=== PATIENT | female | born 1970 | race Caucasian/White ===

== ENCOUNTER → 2017-12-14 11:58 | Outpatient (CLI) | payer SELFPAY ==
[2017-12-20 11:54] LABS: HPV Reflexed? NOT INDICATED
== END ==
PROVIDERS: Visit Provider Obstetrics & Gynecology
DX: Z12.4 Encounter for screening for malignant neoplasm of cervix (principal)
CPT/HCPCS: 88175; G0145

== ENCOUNTER 2018-09-11 09:31 | Day surgery (SDC) | payer BC, SELFPAY ==
[2018-09-04 08:53] VITALS: BMI 42.3
[2018-09-11 09:51] VITALS: BP 150/94; PULSE 88; RESP 16; TEMP 36.3; O2SAT 95; BMI 42.3
[2018-09-11 11:35] VITALS: BP 150/94; BP 155/91; PULSE 85; RESP 16; TEMP 36; O2SAT 100
[2018-09-11 11:40] VITALS: BP 125/102; BP 150/94; PULSE 73; RESP 16; O2SAT 100
--- NOTE | 2018-09-11 11:40 | OP.ENDO_ITS ---
Patient Name: Macy Pino Procedure Date: 09/11/2018 11:10 AM Date of : 1970 Age: 48 Procedure: Colonoscopy Indications: Rectal bleeding, Rectal pain Providers: Talha Merritt MD Referring MD: Talha Merritt MD Medicines: See the Anesthesia note for documentation of the administered medications Patient Profile: This is a 48 year old female. Refer to note in patient chart for documentation of history and physical. Last Colonoscopy: none. The patient's first colonoscopy is today. Complications: No immediate complications. Procedure: Pre-Anesthesia Assessment: - Prior to the procedure, a History and Physical was performed, and patient medications and allergies were reviewed. The patient's tolerance of previous anesthesia was also reviewed. The risks and benefits of the procedure and the sedation options and risks were discussed with the patient. All questions were answered, and informed consent was obtained. Prior Anticoagulants: The patient has taken no previous anticoagulant or antiplatelet agents. ASA Grade Assessment: III - A patient with severe systemic disease. After reviewing the risks and benefits, the patient was deemed in satisfactory condition to undergo the procedure. After I obtained informed consent, the scope was passed under direct vision. Throughout the procedure, the patient's blood pressure, pulse, and oxygen saturations were monitored continuously. The adult colonoscope was introduced through the anus and advanced to the cecum, identified by appendiceal orifice and ileocecal valve. The colonoscopy was performed without difficulty. The patient tolerated the procedure well. The quality of the bowel preparation was good. Scope In: 11:19:29 AM Scope Withdrawal Time 0 hours 6 minutes 33 seconds Scope Out: 11:30:03 AM Total Procedure Duration Time 0 hours 10 minutes 34 seconds Findings: An anal fissure was found on perianal exam. Hemorrhoids were found on perianal exam. Non-bleeding non-thrombosed non-prolapsed external and internal hemorrhoids were found during retroflexion. The hemorrhoids were mild and small. The exam was otherwise without abnormality. Impression: - Anal fissure found on perianal exam. - Hemorrhoids found on perianal exam. - Non-bleeding non-thrombosed non-prolapsed external and internal hemorrhoids. - The examination was otherwise normal. - No specimens collected. Recommendation: - Discharge patient to home. - Resume previous diet. - Continue present medications. - Return to my office in 1 week. - Repeat colonoscopy in 10 years for surveillance. Procedure Code(s): --- Professional --- 08576, Colonoscopy, flexible; diagnostic, including collection of specimen(s) by brushing or washing, when performed (separate procedure) Diagnosis Code(s): --- Professional --- K60.2, Anal fissure, unspecified K64.8, Other hemorrhoids K62.5, Hemorrhage of anus and rectum K62.89, Other specified diseases of anus and rectum CPT copyright 2017 [employer]. All rights reserved. The codes documented in this report are preliminary and upon medical record coder review may be revised to meet current compliance requirements. MD Talha Wilkinson MD 09/11/2018 11:40:26 AM This report has been signed electronically. Number of Addenda: 0 Note Initiated On: 09/11/2018 11:10 AM
[2018-09-11 11:45] VITALS: BP 147/90; BP 150/94; PULSE 72; RESP 16; O2SAT 100
[2018-09-11 11:50] VITALS: BP 134/88; BP 150/94; PULSE 75; RESP 16; TEMP 36; O2SAT 100
--- OUTSIDE RECORDS SUMMARY | 2018-12-13 16:17 | XMS RPT_ITS ---
:1970 Author Organization [facility] Care Team Providers Name Role Phone Antony Angelo Admitting Unavailable NewwanglAntony Attending Unavailable Eron Cowart Primary Care Unavailable NewbillAntony Admitting Unavailable NewbilAntony greenfield Attending Unavailable Eron Cowart Primary Care Unavailable NewbillAntony Admitting Unavailable NewbillAntony Attending Unavailable Bethanie, Kamaljit A Primary Care Unavailable NewbillAntony Admitting Unavailable NewbillAntony Attending Unavailable Bethanie, Kamaljit A Primary Care Unavailable Talha Merritt Attending Unavailable Bethanie, Kamaljit Referring Unavailable Talha Merritt Attending Unavailable Lety Ortiz Attending Unavailable Talha Merritt Attending Unavailable Talha Merritt Referring Unavailable Bethanie, Kamaljit Primary Care Unavailable PROBLEMS PROBLEMS DATE TYPE CONDITION / CODE ATTENDING STATUS SOURCE 10/08/2018 Unknown K62.5 - [place], Talha Active [facility] Hemorrhage of [facility] anus and rectum / Hospital K62.5(ICD-10) Repository 10/08/2018 Unknown K60.2 - Anal Talha Merritt Active [facility] fissure, Community unspecified / Hospital K60.2(ICD-10) Repository 10/08/2018 Unknown K64.8 - Other Talha Merritt Active [facility] hemorrhoids / Community K64.8(ICD-10) Hospital Repository 10/08/2018 Unknown K62.89 - Other Talha Merritt Active [facility] specified Community diseases of anus Hospital and rectum / Repository K62.89(ICD-10) 12/14/2017 Unknown Z12.4 - Encounter Lety Ortiz for screening for [facility] neoplasm of Repository cervix / Z12.4(ICD-10) PROCEDURES PROCEDURES No Procedure Records FoundRESULTS RESULTS OPERATIVE REPORT - Observed: 09/11/2018 Status: F Source: [facility] ENDOSCOPY 11:40 AM [facility] REPOSITORY [facility] Medical Records Department [address] [place] [address] Operative Report - Endoscopy MR#: [id number] Acct: [id number] Name: FLORESITA PINO Rep #: [id number] : 1970 48 From: Talha Merritt MD PCP: Kamaljit Kovacs DO Status: [facility] Patient Name: Floresita Pino Procedure Date: 09/11/2018 11:10 AM Date of : 1970 Age: 48 Procedure: Colonoscopy Indications: Rectal bleeding, Rectal pain Providers: Talha Merritt MD Referring MD: Talha Merritt MD Medicines: See the Anesthesia note for documentation of the administered medications Patient Profile: This is a 48 year old female. Refer to note in patient chart for documentation of history and physical. Last Colonoscopy: none. The patient's first colonoscopy is today. Complications: No immediate complications. Procedure: Pre-Anesthesia Assessment: - Prior to the procedure, a History and Physical was performed, and patient medications and allergies were reviewed. The patient's tolerance of previous anesthesia was also reviewed. The risks and benefits of the procedure and the sedation options and risks were discussed with the patient. All questions were answered, and informed consent was obtained. Prior Anticoagulants: The patient has taken no previous anticoagulant or antiplatelet agents. ASA Grade Assessment: III - A patient with severe systemic disease. After reviewing the risks and benefits, the patient was deemed in satisfactory condition to undergo the procedure. After I obtained informed consent, the scope was passed under direct vision. Throughout the procedure, the patient's blood pressure, pulse, and oxygen saturations were monitored continuously. The adult colonoscope was introduced through the anus and advanced to the cecum, identified by appendiceal orifice and ileocecal valve. The colonoscopy was performed without difficulty. The patient tolerated the procedure well. The quality of the bowel preparation was good. Scope In: 11:19:29 AM Scope Withdrawal Time 0 hours 6 minutes 33 seconds Scope Out: 11:30:03 AM Total Procedure Duration Time 0 hours 10 minutes 34 seconds Findings: An anal fissure was found on perianal exam. Hemorrhoids were found on perianal exam. Non-bleeding non-thrombosed non-prolapsed external and internal hemorrhoids were found during retroflexion. The hemorrhoids were mild and small. The exam was otherwise without abnormality. Impression: - Anal fissure found on perianal exam. - Hemorrhoids found on perianal exam. - Non-bleeding non-thrombosed non-prolapsed external and internal hemorrhoids. - The examination was otherwise normal. - No specimens collected. Recommendation: - Discharge patient to home. - Resume previous diet. - Continue present medications. - Return to my office in 1 week. - Repeat colonoscopy in 10 years for surveillance. Procedure Code(s): --- Professional --- 02268, Colonoscopy, flexible; diagnostic, including collection of specimen(s) by brushing or washing, when performed (separate procedure) Diagnosis Code(s): --- Professional --- K60.2, Anal fissure, unspecified K64.8, Other hemorrhoids K62.5, Hemorrhage of anus and rectum K62.89, Other specified diseases of anus and rectum CPT copyright 2017 [employer]. All rights reserved. The codes documented in this report are preliminary and upon acidizer helper review may be revised to meet current compliance requirements. MD Talha Wilkinson MD 09/11/2018 11:40:26 AM This report has been signed electronically. Number of Addenda: 0 Note Initiated On: 09/11/2018 11:10 AM 12/18/18 1140 Date Talha Merritt MD Cosigner Signature: Date (if indicated) CC: Talha Merritt MD; Kamaljit Kovacs DO Date Dictated: 09/11/18 1110 Date Transcribed: Gas Distribution And Emergency Clerk: RICKY Signed SURGERY VISIT REPORT Observed: 09/05/2018 Status: F Source: [facility] 7:54 AM [facility] [address] [place] [address] [address] [place] [address] OFFICE VISIT Date of Service: 09/04/18 MR#: [id number] Acct: [id number] Name: FLORESITA PINO Rep #: [id number] : 1970 Provider: Talha Merritt MD Age/Sex: 48/F Location: [facility] Status: Signed Intake Vital Signs09/04/18 Height 5 ft 7 in 09/04/18 Weight: 270 lb 10 oz 09/04/18 Body Mass Index (BMI) 42.3 09/04/18 Blood Pressure 130/72 H H Intake Visit Reasons: Hemorrhoids Chief Complaint: hemorrhoid Laboratory Scientist Required: No Is patient in pain?: Yes Pain scale (1-10): 4 Allergies No Known Allergies Allergy (Verified 09/04/18 08:55) Medications Multivitamin [Daily Multiple Vitamin] 1 ea PO DAILY 10/29/15 [History Confirmed 09/04/18] ascorbate calcium-bioflavonoid 1,000 mg-200 mg tablet tab PO tab 09/04/18 [History Confirmed 09/04/18] hydrocortisone 2.5 % topical cream with perineal applicator 1 applic RC BID #30 g 09/04/18 [Rx Confirmed 09/04/18] Is last menstrual period known: No Post menopausal: Yes Patient : No PFSH Medical History Hemorrhoids (Acute) History of hysterectomy (Acute) Surgical History History of arthroscopy of both knees (Acute) History of bilateral knee replacement (Acute) History of cholecystectomy (Acute) Status post wrist surgery (Acute) Family History Mother Diabetes Hypertension Cancer renal Father Heart disease Social History Smoking Status: Former smoker HPI HPI HPI: FLORESITA PINO, is a 48 F who presents to the office today for evaluation of rectal bleeding. Patient has had for about 1 year constant itching burning anal pain she is been noticing off and on rectal bleeding. She has been using odwy-ssa-hsrgkiy remedies for hemorrhoidal disease but this is not been helping her anal pain. She has never had an endoscopy. ROS General General: No weight change, appetite, fatigue, colon cancer, breast cancer or weakness Endo Endocrine: No thyroid disease, diabetes mellitus, thyroid cancer, Hair loss, heat intolerance or cold intolerance Cardio Cardiovascular: No murmur, pacemaker, heart disease, atrial fibrillation, high blood pressure, heart attack, heart stent, palpitations, shortness of breat with exertion or chest pain Resp Respiratory: No shortness of breath, No sleep apnea, No cough, No COPD, No asthma, No emphysema, No wheezing Gastro Gastrointestinal: No abdominal pain, No nausea or vomiting, No diarrhea, No constipation, No blood in stool, No acid reflux, Yes hemorrhoids, No ulcers, Yes gallbladder problem, No black,tarry stools Dameon Hematologic: No blood thinners, No blood disorders, No bleeding, No anemia, No blood clots Neuro Neurologic: No weakness Exam Const General: well developed, no acute distress, well hydrated Orientation: oriented to person, oriented to place, oriented to time [facility] Head: normocephalic, atraumatic Ears: external ears normal Mouth: moist mucous membranes Eyes Sclera: sclerae normal Pupils: normal by confrontation Neck Neck: no lymphadenopathy noted Neck mass: No Thyroid: symmetrical, thyroid normal Chest Chest palpation AND inspection: normal inspection of the chest Resp Effort AND Inspection: normal respiratory effort Auscultation: clear to auscultation bilaterally Percussion: percussion normal Cardio Rate: regular rate Rhythm: regular rhythm Heart Sounds: no murmurs GI Inspection: obesity Palpation: soft, no masses, no hepatosplenomegaly, nontender Rectal Exam: other Other: Rectal exam deferred. Extrem General: no clubbing, cyanosis or edema, normal to inspection Assessment AND Plan Problems 1. Rectal bleeding K62.5 2. Anal pain K62.89 Plan I have discussed the above with the patient. I have offered the patient colonoscopy for evaluation. I have explained the risks/benefits of the procedure and described the procedure. I have discussed the risks with the patient, including but not limited to: infection, bleeding, perforation of the GI tract requiring emergency surgery, inability to complete the procedure, injury to any internal organs, complications of anesthesia, etc. - the patient understands and agrees to proceed. I have answered all the patient's questions to the patient's satisfaction and the patient has no further questions. The patient has been given instructions for the colon cleansing preparation. Orders Orders: Medications New: hydrocortisone 2.5% (Proctozone-HC) Use for 14 days twice1 applic CA BID 30 grams 2RF daily Coding Level of Care Code Off vis,new,level 3 Diagnoses Rectal bleeding K62.5 Anal pain K62.89 09/05/18 0754 <Electronically signed by Talha Merritt MD> Date Talha Merritt MD Cosigner Signature: Date (if applicable) CC: Kamaljit Kovacs DO PAP I-G W/RFX HRHPV Collected: 12/14/2017 Status: F Source: [facility] 11:00 AM [facility] REPOSITORY Order Comment: CYTOLOGY INFORMATION: - CLINICAL INFORMATION: HYSTERECTOMY - DATE LMP/MENOPAUSE: - COLLECTION VIAL: Thin Prep Vial - MENTALLY RETARDED TEACHER SOURCE: VAGINAL - COLLECTION TECHNIQUE: SPATULA ONLY Specimen Comment: [id number] Specimen Comment: No. of containers..01 ThinPrep Vial TYPE CODE TESTS RESULT OUT OF RANGE REFERENCE UNITS LAB L7400.0800 . Normal DIAGN Comment Result Comment: NEGATIVE FOR INTRAEPITHELIAL LESION AND MALIGNANCY. LAB L7400.0900 . Normal ADEQ Comment Result Comment: Satisfactory for evaluation. No endocervical component is identified. LAB L7400.1400 . Normal PERFORM Comment Result Comment: Teresita Layne, Cnc Mill Programmer (ASCP) LAB L7400.2575 . Normal TEST METHOD Comment Result Comment: This liquid based ThinPrep(R) pap test was screened with the use of an image guided system. LAB L7400.2600 . Normal . COMM LAB L7400.2700 . Normal PAPSMR Comment Result Comment: The Pap smear is a screening test designed to aid in the detection of premalignant and malignant conditions of the uterine cervix. It is not a diagnostic procedure and should not be used as the sole means of detecting cervical cancer. Both false-positive and false-negative reports do occur. LAB L7400.2800 . Normal HPV RFLX Comment Result Comment: The HPV DNA reflex criteria were not met with this specimen result therefore, no HPV testing was performed. Performed at: [facility] [id number] Plumbing Designer: Afia Dickerson MD, Phone: [phone] Performed By: #### L7400.0350 #### [facility] (refer to report for specific site) refer to report for address and phone number ALLERGIES ALLERGIES DATE TYPE / CODE NAME / CODE REACTION SEVERITY SOURCE 09/10/2018 Drug No Known Unknown [facility] Allergy/416 Allergies/J84142 [facility] 736086(SNOM 0388(RXNORM) Repository ED CT) Drug/287824 No Known [facility] 003(SNOMED Allergies [facility] CT) System Repository ENCOUNTERS ENCOUNTERS ADMIT/DISCHARGE ACCOUNT NUMBER ADMITTING ENCOUNTER LOCATION SOURCE CLASS 09/11/2018/09/11/20 [id number] Ambulatory BMSBuilding: [facility] Repository 09/11/2018/09/11/20 [id number] Ambulatory [facility] 18 [facility] ding:ENRoom: Repository AC10 09/04/2018/09/04/20 [id number] Ambulatory BMSBuilding: [facility] 18 [facility] Repository 07/02/2018/07/02/20 [id number] Newbill, Antony Ambulatory QCareBuildin [facility] 18 Azam raissa:[facility] Repository 03/01/2018/03/01/20 [id number] Antony Angelo Ambulatory QCareBuildin [facility] 18 Azam g:QCareRoom: [place] [address] Health System Repository 12/25/2017/12/26/19 [id number] Gi Antony Ambulatory QCareBuildin [facility] 18 Azam haji:[facility] System Repository 12/14/2017 [id number] Ambulatory Hoven [facility] ding:[facility] Repository 11/10/2017/11/10/19 [id number] Antony Angelo Ambulatory QCareBuildin [facility] 18 Azam haji:QCareRoom: [address] System Repository PAYERS PAYERS ENCOUNTER GUARANTOR PAYER SUBSCRIBER SOURCE 09/11/2018 FLORESITA A Primary THOR L [facility] [id number] Insurance:ANTHEMPolic CAMPBELLDOB: [facility] Number: [id number] [id number] Repository [address]Bao: [phone] Date:[id number] [phone] () [id number] [place] [address]DA: 09/11/2018 Secondary NOT GIVENUNK [facility] Insurance:SELF PAY [facility] Number: Effective Repository Date:2018-09-11 09/11/2018 FLORESITA A Primary Thor L [facility] [id number] Insurance:ANTHEMPolic CampbellDOB: [facility] Number: [id number] [id number] Repository [address]Vqk: [phone] ve Date:[id number] [phone] () [address], [place] [address]XB: 09/11/2018 Secondary NOT GIVENUNK Hoven Insurance:SELF PAY [facility] Number: Effective Repository Date:2018-09-04 09/04/2018 FLORESITA Primary Thor L Hoven [id number] Insurance[facility]MPolic [facility] Number: [id number] [id number] Repository [address]Hzc: 419) Date:[id number] [phone] () 659974FPJGPFKSILVIA [place]ARD[place] [address]XH: 09/04/2018 Secondary NOT GIVENUNK [facility] Insurance:SELF PAY [facility] Number: Effective Repository Date:2018-09-04 07/02/2018 FLORESITA A Primary THOR L Yaneli PINODOB: Insurance:1500 CAMPBELLDOB: [facility] ANTHEMPolicy Number: [id number] System CINDY Effective WHITE [place], [place] Date:2018-07-02 [place] [address]Rvc: [id number] [id number]: Name:[id number] O (HP) [address] [place] ()Tel: [phone]: [phone] 03/01/2018 FLORESITA A Primary THOR L Yaneli PINODOB: Insurance:1500 CAMPBELLDOB: [facility] ANTHEMPolicy Number: [id number] System WHITE Effective WHITE Repository [place] Date:2018-03-01 - [place] [address]Uqi: [id number] [phone]: Name:[id number] O () [address] ()Tel: [phone]: [phone] 12/25/2017 FLORESITA A Primary THOR L Mormonismtyrell PINODOB: Insurance:1500 CAMPBELLDOB: [facility] ANTHEMPolicy Number: [id number] System WHITE Effective WHITE Repository [place] Date:2017-12-25 [place], [place] [id number]: [id number] [id number]: Name:[id number] O (HP) [address] (HP)Tel: [phone]: [phone] 12/14/2017 Floresita Primary NOT GIVENUNK [facility] [id number] Insurance:SELF PAY [place], [place] Number: Effective Repository [address]Hcc: 419) Date:2017-12-14 [phone] () 11/10/2017 FLORESITA A Primary THOR SCHERERB: Insurance:1500 CAMPBELLDOB: [facility] Number: [id number] [facility] Repository [place] Date:2017-11-10 - [place] [id number]: [id number] [id number]: Name:CD:[id number] O () [address] ()Tel: [phone]: [phone]
== END 2018-09-11 12:13 | disposition home or self-care (01) ==
LOC: EN 09:32 → AC 09:34
PROVIDERS: Family Provider Family Medicine; PCP Family Medicine; Referring Provider Surgery; Visit Provider Surgery
PROC: 0DJD8ZZ Inspection of Lower Intestinal Tract, Via Natural or Artificial Opening Endoscopic (ICD-10-PCS; CPT 45378; principal; 2018-09-11 10:25)
DX: K62.5 Hemorrhage of anus and rectum (principal); K64.8 Other hemorrhoids; K60.2 Anal fissure, unspecified; K62.89 Other specified diseases of anus and rectum; Z87.891 Personal history of nicotine dependence
CPT/HCPCS: 45378; J7120; J1610